=== PATIENT | male | born 1980 | race Caucasian/White ===

== ENCOUNTER 2023-10-10 13:45 | Emergency (ER) | payer OTHER ==
[~2023-10-10] VITALS: Ht 167.6 cm; Wt 74.0 kg
[2023-10-10 13:47] VITALS: BP 153/110; PULSE 96; RESP 16; TEMP 98.4; O2SAT 99
[2023-10-10] MEDS: BACITRACIN ZINC OINT UDPKT TOP ONE (14:15)
[2023-10-10] MEDS: LIDOCAINE HCL/PF 1% 10 MG/ML 5ML VIAL INFIL ONE (14:15)
[2023-10-10] MEDS: TETANUS, DIPHTHERIA, PERTUSSIS VAC/PF 0.5ML (>10YR OLD) IM ONE (14:45)
[2023-10-10] MEDS ORDERED: AMOX1TAB16 MT (14:59)
== END 2023-10-10 15:15 | disposition home or self-care (01) ==
LOC: ER 14:11
DX: S91.119A Laceration without foreign body of unspecified toe without damage to nail, initial encounter (principal); X58.XXXA Exposure to other specified factors, initial encounter; Y93.89 Activity, other specified; Y92.89 Other specified places as the place of occurrence of the external cause; Y99.8 Other external cause status
CPT/HCPCS: 90715; 12002; 90471; 99283; J3490; Z7610

== ENCOUNTER 2023-10-12 11:20 | Emergency (ER) | payer OTHER ==
[~2023-10-12] VITALS: Ht 175.3 cm; Wt 86.2 kg
[~2023-10-12 11:20] MED LIST: AMOX1TAB16 MT
[2023-10-12 11:25] VITALS: O2SAT 98
[2023-10-12 13:06] VITALS: BP 131/78; PULSE 76; RESP 16; TEMP 98.3
== END 2023-10-12 13:06 | disposition home or self-care (01) ==
LOC: ER 11:20
DX: S91.115D Laceration without foreign body of left lesser toe(s) without damage to nail, subsequent encounter (principal); X58.XXXD Exposure to other specified factors, subsequent encounter
CPT/HCPCS: 99281